=== PATIENT | male | born 1985 | race Two or more races ===

== ENCOUNTER → 2016-08-09 | Outpatient (REF) | payer OTHER ==
[2016-08-10 14:15] LABS: %CD3+CD4+CD8+ 1.2 % (Not Estab.); %CD3+CD4+CD8- 22.5 % (Not Estab.); %CD3+CD4-CD8+ 51.8 % (Not Estab.); %CD3+CD4-CD8- 2.9 % (Not Estab.); ABS CD3+CD4+CD8+ 30 /uL (Not Estab.); ABS CD3+CD4+CD8- 563 /uL (Not Estab.); ABS CD3+CD4-CD8+ 1295 /uL (Not Estab.); ABS CD3+CD4-CD8- 73 /uL (Not Estab.); CD4/CD8 NYSDOH RATIO 0.43 (Not Estab.); Eosinophils 3 % (.); HCT 43.2 % (37.5-51.0); HGB 14.6 g/dL (12.6-17.7); Monocytes 6 % (.); Neutrophils 52 % (.); WBC 6.5 x10E3/uL (3.4-10.8)
== END ==
LOC: M SFHCPLAZ 11:19
PROVIDERS: ATTEND Internal Medicine Infectious Disease
DX: B20 Human immunodeficiency virus [HIV] disease (principal)

== ENCOUNTER → 2016-10-16 | Outpatient (REF) | payer OTHER ==
[2016-10-16 18:15] LABS: ALBUMIN 4.1 GM/DL (3.2-5.2); ALBUMIN/GLOBULIN RATIO 1.32 (1.00-1.93); ALKALINE PHOSPHATASE 74 U/L (45-117); ALT/SGPT 25 U/L (12-78); ANION GAP 7 MEQ/L (8-16); AST/SGOT 15 U/L (15-37); BILIRUBIN,TOTAL 0.2 MG/DL (0.2-1.0); BLOOD UREA NITROGEN 7 MG/DL (7-18); CALCIUM LEVEL 8.5 MG/DL (8.5-10.1); CARBON DIOXIDE LEVEL 30 MEQ/L (21-32); CHLORIDE LEVEL 106 MEQ/L (98-107); CREATININE FOR GFR 0.85 MG/DL (0.70-1.30); GLOMERULAR FILTRATION RATE > 60.0 (>60); GLUCOSE, FASTING 106 MG/DL (70-105); SODIUM LEVEL 143 MEQ/L (136-145); TOTAL PROTEIN 7.2 GM/DL (6.4-8.2)
[2016-10-19 14:14] LABS: %CD3+CD4+CD8+ 1.1 % (Not Estab.); %CD3+CD4+CD8- 27.9 % (Not Estab.); %CD3+CD4-CD8+ 41.7 % (Not Estab.); %CD3+CD4-CD8- 3.1 % (Not Estab.); ABS CD3+CD4+CD8+ 26 /uL (Not Estab.); ABS CD3+CD4+CD8- 670 /uL (Not Estab.); ABS CD3+CD4-CD8+ 1001 /uL (Not Estab.); ABS CD3+CD4-CD8- 74 /uL (Not Estab.); CD4/CD8 NYSDOH RATIO 0.67 (Not Estab.); Eosinophils 2 % (.); HGB 14.2 g/dL (12.6-17.7); Monocytes 4 % (.); Neutrophils 54 % (.); WBC 5.8 x10E3/uL (3.4-10.8)
== END ==
LOC: M SFHCPLAZ 15:36
PROVIDERS: ATTEND Internal Medicine Infectious Disease
DX: B20 Human immunodeficiency virus [HIV] disease (principal); R31.29 Other microscopic hematuria

== ENCOUNTER → 2016-12-10 | Outpatient (REF) | payer OTHER ==
[2016-12-10 16:33] LABS: ALBUMIN 4.3 GM/DL (3.2-5.2); ALBUMIN/GLOBULIN RATIO 1.39 (1.00-1.93); ALKALINE PHOSPHATASE 78 U/L (45-117); ALT/SGPT 26 U/L (12-78); ANION GAP 7 MEQ/L (8-16); AST/SGOT 16 U/L (15-37); BILIRUBIN,TOTAL 0.2 MG/DL (0.2-1.0); BLOOD UREA NITROGEN 8 MG/DL (7-18); CALCIUM LEVEL 8.6 MG/DL (8.5-10.1); CARBON DIOXIDE LEVEL 29 MEQ/L (21-32); CHLORIDE LEVEL 102 MEQ/L (98-107); CREATININE FOR GFR 0.71 MG/DL (0.70-1.30); GLOMERULAR FILTRATION RATE > 60.0 (>60); GLUCOSE, FASTING 87 MG/DL (70-105); POTASSIUM SERUM 4.3 MEQ/L (3.5-5.1); SODIUM LEVEL 138 MEQ/L (136-145); TOTAL PROTEIN 7.4 GM/DL (6.4-8.2)
[2016-12-14 00:06] LABS: Eosinophils 2 % (Not Estab.); HCT 46.8 % (37.5-51.0); HGB 15.5 g/dL (12.6-17.7); Monocytes 5 % (Not Estab.); Neutrophils 54 % (Not Estab.); WBC 6.5 x10E3/uL (3.4-10.8)
== END ==
LOC: M SFHCPLAZ 13:47
PROVIDERS: ATTEND Internal Medicine Infectious Disease
DX: B20 Human immunodeficiency virus [HIV] disease (principal); A09 Infectious gastroenteritis and colitis, unspecified

== ENCOUNTER → 2017-03-14 | Outpatient (REF) | payer OTHER ==
[2017-03-14 14:06] LABS: APPEARANCE, URINE CLEAR (CLEAR); BACTERIA, URINE AUTO NEGATIVE (NEGATIVE); BILIRUBIN, URINE AUTO NEGATIVE (NEGATIVE); BLOOD, URINE BLOOD 2+ (NEGATIVE); COLOR, URINE YELLOW (YELLOW); GLUCOSE, URINE (UA) AUTO NEGATIVE (NEGATIVE); KETONE, URINE AUTO NEGATIVE (NEGATIVE); LEUKOCYTE ESTERASE, URINE AUTO NEGATIVE (NEGATIVE); MUCUS, URINE SMALL (NEGATIVE); NITRITE, URINE AUTO NEGATIVE (NEGATIVE); PROTEIN, URINE AUTO NEGATIVE (NEGATIVE); RBC, URINE AUTO 11 /HPF (0-3); SQUAMOUS EPITHELIAL CELL UR AU 0 /HPF (0-6); UROBILINOGEN, URINE AUTO 0.2 mg/dL (0.0-2.0); WBC, URINE AUTO 2 /HPF (0-3)
[2017-03-14 16:16] LABS: ALBUMIN 4.1 GM/DL (3.2-5.2); ALBUMIN/GLOBULIN RATIO 1.28 (1.00-1.93); ALKALINE PHOSPHATASE 75 U/L (45-117); ALT/SGPT 23 U/L (12-78); ANION GAP 6 MEQ/L (8-16); AST/SGOT 17 U/L (7-37); BILIRUBIN,TOTAL 0.3 MG/DL (0.2-1.0); BLOOD UREA NITROGEN 9 MG/DL (7-18); CALCIUM LEVEL 8.7 MG/DL (8.5-10.1); CARBON DIOXIDE LEVEL 29 MEQ/L (21-32); CHLORIDE LEVEL 105 MEQ/L (98-107); CHOLESTEROL LEVEL 228 MG/DL (<200); CHOLESTEROL RISK RATIO 4.384 (<5); CREATININE FOR GFR 0.73 MG/DL (0.70-1.30); GLOMERULAR FILTRATION RATE > 60.0 (>60); GLUCOSE, FASTING 103 MG/DL (70-105); HDL CHOLESTEROL 52 MG/DL (>40); LDL CHOLESTEROL 140.6 MG/DL (<100); NON-HDL-C 176 MG/DL; POTASSIUM SERUM 4.2 MEQ/L (3.5-5.1); SODIUM LEVEL 140 MEQ/L (136-145); TOTAL PROTEIN 7.3 GM/DL (6.4-8.2); TRIGLYCERIDES LEVEL 177 MG/DL (<150)
[2017-03-15 12:51] LABS: CHLAMYDIA DNA AMPLIFICATION NEGATIVE (NEGATIVE); GC DNA AMPLIFICATION NEGATIVE (NEGATIVE)
[2017-03-16 14:11] LABS: % CD8 Pos Lymph 47.9 % (12.0-35.5); ABS Eosinophils 0.1 x10E3/uL (0.0-0.4); ABS Lymphs 2.7 x10E3/uL (0.7-3.1); ABS Monocytes 0.2 x10E3/uL (0.1-0.9); ABS Neutophils 3.3 x10E3/uL (1.4-7.0); Abs CD4 Helper 756 /uL (359-1519); Abs CD8 Suppres 1293 /uL (109-897); CD4/CD8 Ratio 0.58 (0.92-3.72); Eosinophils 2 % (Not Estab.); HCT 44.4 % (37.5-51.0); HGB 14.8 g/dL (13.0-17.7); Immature Grans 0 % (Not Estab.); Lymphocytes 43 % (Not Estab.); MCH 30.5 pg (26.6-33.0); MCHC 33.3 g/dL (31.5-35.7); MCV 92 fL (79-97); Monocytes 3 % (Not Estab.); Neutrophils 52 % (Not Estab.); Platelets 235 x10E3/uL (150-379); QUANTIFERON GOLD TB Negative (Negative); RBC 4.85 x10E6/uL (4.14-5.80); TB Test (QFT) Antigen 0.04 IU/mL (.); TB Test (QFT) Antigen Minus Ni <0.01 IU/mL (.); TB Test (QFT) Mitogen >10.00 IU/mL (.); TB Test (QFT) Nil 0.05 IU/mL (.); WBC 6.3 x10E3/uL (3.4-10.8)
[2017-03-19 14:14] LABS: HIV-1 RNA PCR QUANT 2 LC550285 <20 copies/mL (.)
== END ==
LOC: M SFHCPLAZ 10:56
DX: B20 Human immunodeficiency virus [HIV] disease (principal); R31.29 Other microscopic hematuria; Z13.220 Encounter for screening for lipoid disorders
CPT/HCPCS: 80053

== ENCOUNTER → 2017-03-19 | Outpatient (REF) | payer OTHER | LOC: M SFHCPLAZ 08:24 | DX: A09 Infectious gastroenteritis and colitis, unspecified (principal) ==